=== PATIENT | female | born 1960 | race Two or more races ===

== ENCOUNTER 2018-02-10 05:00 | Emergency (ER) | payer MEDICAID, OTHER ==
[~2018-02-10] VITALS: Ht 162.6 cm; Wt 102.0 kg
[2018-02-10] MEDS ORDERED: SILVER NITRATE APPLICATOR STICK TOP ONE (06:30)
[2018-02-10 07:50] LABS: BASOPHILS % 0.9 % (0.0-2.0); EOSINOPHILS % 0.5 % (0.0-5.0); HEMATOCRIT. 46.7 % (36.0-48.0); HEMOGLOBIN. 15.8 g/dL (12.0-16.0); LYMPHOCYTES % 28.5 % (20.0-50.0); MEAN CORPUSCULAR VOLUME 88.7 fL (81.0-99.0); MONOCYTES % 7.4 % (2.0-8.0); NEUTROPHILS % 62.7 % (40.0-76.0); PLATELET 322 x1000/uL (130-400); RED BLOOD CELL COUNT 5.27 mill/uL (4.2-5.4); RED CELL DISTRIBUTION WIDTH 13.5 % (11.6-14.6)
[2018-02-10 07:54] LABS: CHLORIDE 105 mEq/L (98-107); PROTHROMBIN TIME 10.8 sec (9.4-11.6)
[2018-02-10] MEDS ORDERED: LISINOPRIL 40MG TABLET PO ONE (08:30)
[2018-02-10] MEDS ORDERED: OXYMETAZOLINE HCL NASAL SPRAY 15ML BOTHNSTRLS ONE (08:30)
[2018-02-10] MEDS ORDERED: AMLODIPINE 5MG TABLET PO ONE (08:30)
[2018-02-10 09:14] VITALS: BP 150/98
== END 2018-02-10 09:23 | disposition home or self-care (01) ==
LOC: ER 05:00
DX: R04.0 Epistaxis (principal); I10 Essential (primary) hypertension; Z90.710 Acquired absence of both cervix and uterus
CPT/HCPCS: 36415; 80048; 85025; 85610; 99284; Z7610